=== PATIENT | male | born 1955 | race Caucasian/White ===

== ENCOUNTER 2016-07-06 10:38 | Day surgery (SDC) | payer OTHER ==
[2016-07-06] MEDS ORDERED: NS 500 ML IV ONE (10:45)
[2016-07-06] MEDS ORDERED: fentaNYL 100 MCG/2 ML INJ IVP ONE (10:45)
[2016-07-06] MEDS ORDERED: PROPOFOL 200 MG/20 ML VIAL IVP ONE (10:45)
[2016-07-06] MEDS ORDERED: BENZOCAINE UNIT DOSE SPRAY HURRICAINE MM ONE (10:45)
[2016-07-06] MEDS ORDERED: MIDAZOLAM 2 MG/2 ML VIAL IVP ONE (10:45)
[2016-07-06] MEDS ORDERED: ATROPINE SULFATE 1 MG/10 ML SYR ONE (10:49)
--- NOTE | 2016-07-06 11:06 | CPEKG ---
Heart Rate: 92 RR Interval: 652 QRSD Interval: 86 QT Interval: 360 QTC Interval: 446 QRS [place]: 16 T Wave [place]: 2 EKG Severity - ABNORMAL ECG - EKG Impression: ATRIAL FIBRILLATION, V-RATE 70-111 Electronically Signed By: Charanjit Byers 07-Jul-2016 06:36:02
[2016-07-06] MEDS ORDERED: LIDOCAINE 2% 5 ML SDV ONE ×2 (11:32→11:41)
[2016-07-06 11:41] LABS: ANION GAP 9 mEq/L (8-16); CARBON DIOXIDE 29 mEq/l (22-31); CHLORIDE 104 mEq/L (97-110); CREATININE 1.1 mg/dL (0.7-1.3); GLOMERULAR FILTRATION RATE > 60; GLUCOSE 91 mg/dL (70-100); INR 1.14 (0.83-1.16); MAGNESIUM 2.1 mg/dL (1.6-2.3); POTASSIUM 4.8 mEq/L (3.5-5.2); PROTIME(PATIENT) 14.5 SEC (12.0-15.0); SODIUM 142 mEq/L (134-144)
[2016-07-06] MEDS ORDERED: PROPOFOL 200 MG/20 ML VIAL ONE (11:41)
[2016-07-06 11:42] LABS: APTT 27.5 SEC (23.0-38.0)
--- NOTE | 2016-07-06 12:17 | CPEKG ---
Heart Rate: 64 RR Interval: 938 P-R Interval: 164 QRSD Interval: 86 QT Interval: 412 QTC Interval: 425 P [place]: 47 QRS [place]: 6 T Wave [place]: 2 EKG Severity - BORDERLINE ECG - EKG Impression: SINUS RHYTHM EKG Impression: LEFT ATRIAL ENLARGEMENT Electronically Signed By: Charanjit Byers 07-Jul-2016 06:35:54
--- NOTE | 2016-07-06 13:53 | ECHO ---
[id number] + + [address] : : [facility] [address] : : [phone] + + Adult Echocardiographic Report + -----+ :Name: DELVIN COATES Date: 07/06/2016 11:25 AM : : Hospital Admission Number: [id number] Location : CVC: :: 1955 Gender: Male : :Age: 61 yrs Race: WH,White : :Reason For Study: Eval JON : :History: Pre Cardioversion : + -----+ Left Ventricle The left ventricle is normal in size. There is normal left ventricular wall thickness. The left ventricular ejection fraction is normal. Right Ventricle The right ventricle is normal in size and function. Atria No thrombus is detected in the left atrial appendage. No left atrial mass or thrombus visualized. Injection of contrast documented an interatrial shunt. A patent foramen ovale is present. Mitral Valve There is moderate mitral regurgitation. Tricuspid Valve Normal tricuspid valve. There is mild tricuspid regurgitation. Aortic Valve The aortic valve is trileaflet. There is no aortic stenosis. There is no aortic insufficiency. Pulmonic Valve The pulmonic valve is normal in structure and function. Pericardium/Pleural There is no pericardial effusion. Conclusion A complete two-dimensional transthoracic echocardiogram was performed (2D, M-mode, Doppler and color flow Doppler). The left ventricular ejection fraction is normal. No thrombus is detected in the left atrial appendage. No left atrial mass or thrombus visualized. Injection of contrast documented an interatrial shunt. A patent foramen ovale is present. There is moderate mitral regurgitation. Normal tricuspid valve There is mild tricuspid regurgitation. The aortic valve is trileaflet. There is no pericardial effusion. Final Reading Physician: Aaron Espinoza MD electronically signed on 07/06/2016 01:52 PM Ordering Physician: Aaron Espinoza Performed By: Aaron Espinoza MD
--- NOTE | 2016-07-08 01:17 | CPR ---
[f rep st] NONINVASIVE CARDIAC PROCEDURE REPORT PROCEDURE: Cardioversion. INDICATION: Atrial fibrillation. DESCRIPTION OF PROCEDURE: Written informed consent was obtained. Patient had been on Eliquis; whitten richard, given prior history of stroke, we elected to perform a YANN which showed absence of left atrial or left atrial appendage thrombus. YANN report has been dictated separately. The anesthesiologist administered IV general anesthesia prior to YANN. A single 200 joule biphasic s ynchronized DC shock was administered which converted the patient to sinus rhythm. There were no co mplications. /[id number]/MODL
== END 2016-07-06 13:38 | disposition home or self-care (01) ==
LOC: FCATH 10:38
PROVIDERS: ATTEND Internal Medicine Cardiovascular Disease
PROC: B246ZZ4 Ultrasonography of Right and Left Heart, Transesophageal (ICD-10-PCS; principal; 2016-07-06)
PROC: 5A2204Z Restoration of Cardiac Rhythm, Single (ICD-10-PCS; principal; 2016-07-06)
DX: I48.91 Unspecified atrial fibrillation (principal); K21.9 Gastro-esophageal reflux disease without esophagitis; Z79.01 Long term (current) use of anticoagulants; Z86.73 Personal history of transient ischemic attack (TIA), and cerebral infarction without residual deficits
CPT/HCPCS: J0461; J2704

== ENCOUNTER → 2016-07-29 | Day surgery (SDC) | payer OTHER ==
[~2016-07-29] MED LIST: ATROPINE SULFATE 1 MG/10 ML SYR ONE; BENZOCAINE UNIT DOSE SPRAY HURRICAINE MM ONE; MIDAZOLAM 2 MG/2 ML VIAL IVP ONE; NS 500 ML IV ONE; PROPOFOL 200 MG/20 ML VIAL IVP ONE; fentaNYL 100 MCG/2 ML INJ IVP ONE
--- NOTE | 2016-07-29 11:38 | CPEKG ---
Heart Rate: 79 RR Interval: 759 QRSD Interval: 96 QT Interval: 376 QTC Interval: 432 QRS [place]: 11 T Wave [place]: 6 EKG Severity - ABNORMAL ECG - EKG Impression: ATRIAL FIBRILLATION, V-RATE 63-91 Electronically Signed By: Kenya Fernandez 29-Jul-2016 12:18:08
[2016-07-29 11:56] LABS: INR 1.19 (0.83-1.16); PROTIME(PATIENT) 15.1 SEC (12.0-15.0)
[2016-07-29 11:57] LABS: APTT 28.1 SEC (23.0-38.0)
[2016-07-29 12:03] LABS: ANION GAP 10 mEq/L (8-16); CARBON DIOXIDE 28 mEq/l (22-31); CHLORIDE 102 mEq/L (97-110); CREATININE 1.2 mg/dL (0.7-1.3); GLOMERULAR FILTRATION RATE > 60; GLUCOSE 91 mg/dL (70-100); POTASSIUM 4.6 mEq/L (3.5-5.2); SODIUM 140 mEq/L (134-144)
--- NOTE | 2016-07-29 12:37 | CPEKG ---
Heart Rate: 57 RR Interval: 1053 P-R Interval: 168 QRSD Interval: 92 QT Interval: 416 QTC Interval: 405 P [place]: 37 QRS [place]: 12 T Wave [place]: 5 EKG Severity - NORMAL ECG - EKG Impression: SINUS RHYTHM Electronically Signed By: Kenya Fernandez 29-Jul-2016 15:42:28
--- NOTE | 2016-07-29 22:37 | CPR ---
[f rep st] NONINVASIVE CARDIAC PROCEDURE REPORT CARDIOVERSION REPORT INDICATION: Atrial fibrillation. Anticoagulation with Eliquis. The patient has not missed a single dose since his last transesophage al echocardiogram, and he has been instructed to continue it long-term given his history of stroke. He was started on Rythmol recently. ANESTHESIOLOGIST: Dr. Nain Caballero DESCRIPTION: Appropriate monitoring was established, and consents were signed. A single 200 joule biphasic synchronized DC shock was administered after IV general anesthesia. This converted him to normal sinus rhythm. There were no complications. LONG-TERM PLAN: I will follow up with the patient in 1 month. If he has had recurrence of atrial f ibrillation, discussion to be had at that time regarding increasing dose of Rythmol, trying Tikosyn or sotalol versus considering catheter-based or surgical ablation. /[id number]/MODL
== END | disposition home or self-care (01) ==
LOC: FCATH 11:17
PROVIDERS: ATTEND Internal Medicine Cardiovascular Disease
PROC: 5A2204Z Restoration of Cardiac Rhythm, Single (ICD-10-PCS; principal; 2016-07-29)
DX: I48.1 Persistent atrial fibrillation (principal)
CPT/HCPCS: J0461; J2704

== ENCOUNTER → 2016-10-20 | Outpatient (CLI) | payer OTHER ==
[~2016-10-20] MED LIST changes: -ATROPINE SULFATE 1 MG/10 ML SYR ONE; -BENZOCAINE UNIT DOSE SPRAY HURRICAINE MM ONE; +IOPAMIDOL (ISOVUE 370) 100 ML BTL IV ONE; -MIDAZOLAM 2 MG/2 ML VIAL IVP ONE; -NS 500 ML IV ONE; -PROPOFOL 200 MG/20 ML VIAL IVP ONE; -fentaNYL 100 MCG/2 ML INJ IVP ONE
== END ==
LOC: FIMAGING 11:53
PROVIDERS: ATTEND Internal Medicine Cardiovascular Disease
DX: Z01.810 Encounter for preprocedural cardiovascular examination (principal); I48.91 Unspecified atrial fibrillation; I25.10 Atherosclerotic heart disease of native coronary artery without angina pectoris; K44.9 Diaphragmatic hernia without obstruction or gangrene; K76.89 Other specified diseases of liver
CPT/HCPCS: Q9967

== ENCOUNTER 2016-10-27 07:14 | Observation (INO) | payer OTHER ==
[2016-10-27] MEDS ORDERED: MIDAZOLAM 2 MG/2 ML VIAL IVP ONE (07:18)
[2016-10-27] MEDS ORDERED: NS 1,000 ML IV ONE (07:18)
[2016-10-27] MEDS ORDERED: LIDOCAINE 1% 300 MG/30 ML SDV ONE (07:34)
[2016-10-27] MEDS ORDERED: HEPARIN 10,000 UNIT/10 ML MDV ONE (07:34)
[2016-10-27] MEDS ORDERED: BUPIVACAINE 0.5% 30 ML SDV ONE (07:34)
--- NOTE | 2016-10-27 07:39 | CPEKG ---
Heart Rate: 81 RR Interval: 741 QRSD Interval: 84 QT Interval: 352 QTC Interval: 409 QRS [place]: 26 T Wave [place]: -2 EKG Severity - ABNORMAL ECG - EKG Impression: ATRIAL FIBRILLATION, V-RATE 64-92 EKG Impression: BORDERLINE T ABNORMALITIES, INFERIOR LEADS Electronically Signed By: Jose E Hughes 27-Oct-2016 09:04:16
[2016-10-27 07:54] LABS: % IMMATURE GRANULYOCYTES 0.2 % (0.0-1.1); ABSOLUTE IMMATURE GRANULOCYTES 0.01 10^3/uL (0.00-0.10); ADD DIFF? NO; ADD MORPH? NO; ADD SCAN? NO; ATYPICAL LYMPHOCYTE FLAG 0 (0-99); FRAGMENT RBC FLAG 0 (0-99); HEMATOCRIT 43.9 % (40.0-51.0); HEMOGLOBIN 14.8 g/dL (13.7-17.5); LEFT SHIFT FLG 0 (0-99); LIPEMIA HEMOLYSIS FLAG 80 (0-99); MEAN CELL HEMOGLOBIN 31.2 pg (27.9-34.1); MEAN CELL HEMOGLOBIN CONCENTR. 33.7 g/dL (32.4-36.7); MEAN CELL VOLUME 92.6 fL (81.5-99.8); MEAN PLATELET VOLUME 10.7 fL (8.7-11.7); PLATELET CLUMPS FLAG 0 (0-99); PLATELET COUNT 187 10^3/uL (150-400); RED BLOOD CELL COUNT 4.74 10^6/uL (4.40-6.38); RED CELL DISTRIBUTION WIDTH 13.5 % (11.5-15.2)
[2016-10-27] MEDS ORDERED: HEPARIN/DEXTROSE 25,000 UNIT/500 ML BAG ONE (07:59)
[2016-10-27 08:07] LABS: ANION GAP 10 mEq/L (8-16); CALCIUM 8.4 mg/dL (8.5-10.4); CARBON DIOXIDE 26 mEq/l (22-31); CHLORIDE 102 mEq/L (97-110); CREATININE 1.2 mg/dL (0.7-1.3); GLOMERULAR FILTRATION RATE > 60; GLUCOSE 91 mg/dL (70-100); MAGNESIUM 1.9 mg/dL (1.6-2.3); POTASSIUM 4.3 mEq/L (3.5-5.2); SODIUM 138 mEq/L (134-144)
[2016-10-27 08:19] LABS: INR 0.98 (0.83-1.16); PROTIME(PATIENT) 12.9 SEC (12.0-15.0)
[2016-10-27 08:20] LABS: APTT 31.9 SEC (23.0-38.0)
[2016-10-27] MEDS ORDERED: ROCURONIUM 50 MG/5 ML VIAL ONE (08:32)
[2016-10-27] MEDS ORDERED: PROPOFOL 200 MG/20 ML VIAL ONE ×2 (08:32→08:38)
[2016-10-27] MEDS ORDERED: fentaNYL 100 MCG/2 ML INJ ONE (08:32)
[2016-10-27] MEDS ORDERED: IOPAMIDOL (ISOVUE-300) 100 ML BTL ONE (09:14)
[2016-10-27] MEDS ORDERED: PHENYLEPHRINE 10 MG/ML SDV ONE (10:11)
[2016-10-27] MEDS ORDERED: PROTAMINE SULFATE 50 MG/5 ML VIAL IVP ONE (10:56)
[2016-10-27] MEDS ORDERED: ACETAMINOPHEN 325 MG TAB PO PRN (11:31)
[2016-10-27] MEDS ORDERED: OXYCODONE/APAP 5/325 TAB PO PRN (11:31)
[2016-10-27] MEDS ORDERED: ONDANSETRON 4 MG/2 ML VIAL IVP PRN (11:31)
--- NOTE | 2016-10-27 11:31 | EPPROC ---
Electrophysiology Procedure Note: ELECTROPHYSIOLOGIC STUDY AND BALLOON-CATHETER MEDIATED CRYOABLATION FOR EARLY PERSISTENT ATRIAL FIBRILLATION Procedures performed: 38417-04 EP evaluation with RA/RV/LA pace/record, with arrhythmia induction 95257-57 EP evaluation with RA/RV pace record, insert/reposition catheter, with arrhythmia induction 69373 Atrial fibrillation ablation Intracardiac echocardiogram Fluoroscopy INDICATION: Early persistent atrial fibrillation PROCEDURE: The patient arrived in the Electrophysiology Laboratory in the fasting state. The right groin, left groin and right infraclavicular area were prepped and draped in the usual sterile fashion. Anesthesiologist administered general anesthesia Dr. Gustavo Ortiz . All catheters were placed percutaneously using the Seldinger technique and advanced into position under fluoroscopic guidance. One #7 Yemeni deflectable octapolar electrode catheter was placed in the His-bundle position via the left femoral vein (2mm spacing, IVC electrode for unipolar recordings). This catheter was placed in the coronary sinus after transseptal puncture and later placed in the SVC-R subclavian vein junction to pace the right phrenic nerve during right pulmonary vein ablation. One #8 Yemeni AcuNaV ultrasound catheter was placed in the left femoral vein and advanced into the right atrium. One #4 Yemeni sheath was inserted into the left femoral artery via percutaneous technique and used for continuous arterial blood pressure monitoring and intermittent ACT determination. Programmed stimulation was performed from the right atrium, left atrium (CS) and right ventricle. There was no evidence of AV accessory pathway. Intracardiac echo evaluation of the left atrium and pulmonary veins was performed. Baseline ACT was drawn and heparin bolus was administered and heparin drip was started prior to transseptal puncture. ACT was checked every 15 minutes and maintained in the range of 350-400 seconds. One 14Fr short sheath was placed in the right femoral vein. One 8Fr SL1 sheath was advanced into the right atrium via the 14Fr short sheath. Existing PFO was crossed. Pulmonary vein angiogram was done using SL1 sheath. CT angiography of pulmonary veins was done previously. There were distinct LSPV, LIPV, RSPV and RIPV. The SL1 sheath was exchanged for a Ener1tronic Flexcath sheath using an Amplatz stiff guide wire. A 28 mm Cryoballoon catheter with a 20 mm Achieve catheter was placed via the sheath into the left atrium. Intracardiac ultrasound and PV angiograms were used to assist in placing the mapping catheter at the antrum of the pulmonary veins. All pulmonary veins were isolated successfully using cryoballoon ablation using freeze/thaw/freeze cycles at 2-3-minute intervals, with good [id number] of isolation. Coumadin ridge/Ligament of Rodolfo region was ablated. Pre and post pulmonary vein recordings were measured on the spiral Achieve catheter to ensure complete pulmonary vein isolation. During the right-sided ablation, phrenic nerve pacing was performed to assess the phrenic nerve strength ( manually and with ICE visualization of liver movement during phrenic capture) and the phrenic nerve was intact throughout the right-sided ablation and at the end of the procedure. An esophageal temperature probe (12 electrode, Circa) was placed by the anesthesiologist at the beginning of the procedure. Esophageal temperature was monitored continuously and cryoablation was interrupted if esophageal temperature was <15 C. Esophagus was closest to RIPV. Cryoapplications 8 total cryoablation time 1147 s. ICE imaging post ablation was consistent with pre ablation imaging with no changes noted, moreover there was no left atrial/left ventricular thrombus and no pericardial effusion. The catheters were withdrawn. Protamine was given. The sheaths were removed and manual pressure was used for hemostasis. The patient was recovered from anesthesia. There were no complications. The patient was arousable and moving all four extremities at the end of the procedure. CONCLUSIONS: 1. Early persistent atrial fibrillation. 2. Patent foramen ovale. 3. Successful pulmonary vein isolation procedure (left and right pulmonary vein antrum) using cryoballoon ablation. 4. No apparent complications. Patient Problems: Problems Problem Status Onset Atrial fibrillation and flutter Acute
[2016-10-27 12:01] LABS: ANION GAP 7 mEq/L (8-16); CALCIUM 7.9 mg/dL (8.5-10.4); CARBON DIOXIDE 24 mEq/l (22-31); CHLORIDE 106 mEq/L (97-110); GLOMERULAR FILTRATION RATE > 60; GLUCOSE 95 mg/dL (70-100); MAGNESIUM 1.9 mg/dL (1.6-2.3); POTASSIUM 4.5 mEq/L (3.5-5.2); SODIUM 137 mEq/L (134-144)
--- NOTE | 2016-10-27 12:42 | CPEKG ---
Heart Rate: 75 RR Interval: 800 P-R Interval: 176 QRSD Interval: 94 QT Interval: 396 QTC Interval: 443 P [place]: 70 QRS [place]: 11 T Wave [place]: -4 EKG Severity - BORDERLINE ECG - EKG Impression: SINUS RHYTHM EKG Impression: BORDERLINE T ABNORMALITIES, INFERIOR LEADS EKG Impression: NORMAL SINUS RHYTHM HAS REPLACED ATRIAL FIBRILLATION Electronically Signed By: Francois Melton 27-Oct-2016 13:09:53
[2016-10-27] MEDS: PANTOPRAZOLE SODIUM 40 MG TAB PO SCH (13:08)
[2016-10-27] MEDS: ENOXAPARIN 80 MG/0.8 ML SYR SC SCH (16:19)
[2016-10-27 21:01] VITALS: TEMP 97.9
[2016-10-27] MEDS: METOPROLOL TARTRATE 25 MG TAB PO SCH (21:02)
[2016-10-28] MEDS: ENOXAPARIN 80 MG/0.8 ML SYR SC SCH (04:15)
[2016-10-28 04:34] LABS: % IMMATURE GRANULYOCYTES 0.3 % (0.0-1.1); ABSOLUTE IMMATURE GRANULOCYTES 0.02 10^3/uL (0.00-0.10); ADD DIFF? NO; ADD MORPH? NO; ADD SCAN? NO; ATYPICAL LYMPHOCYTE FLAG 0 (0-99); FRAGMENT RBC FLAG 0 (0-99); HEMOGLOBIN 12.7 g/dL (13.7-17.5); LEFT SHIFT FLG 0 (0-99); LIPEMIA HEMOLYSIS FLAG 90 (0-99); MEAN CELL HEMOGLOBIN 31.4 pg (27.9-34.1); MEAN CELL HEMOGLOBIN CONCENTR. 34.3 g/dL (32.4-36.7); MEAN CELL VOLUME 91.6 fL (81.5-99.8); MEAN PLATELET VOLUME 10.6 fL (8.7-11.7); PLATELET CLUMPS FLAG 10 (0-99); PLATELET COUNT 161 10^3/uL (150-400); RED BLOOD CELL COUNT 4.04 10^6/uL (4.40-6.38); RED CELL DISTRIBUTION WIDTH 13.4 % (11.5-15.2)
[2016-10-28 04:44] LABS: ANION GAP 7 mEq/L (8-16); CALCIUM 8.3 mg/dL (8.5-10.4); CARBON DIOXIDE 24 mEq/l (22-31); CHLORIDE 103 mEq/L (97-110); CREATININE 0.9 mg/dL (0.7-1.3); GLOMERULAR FILTRATION RATE > 60; GLUCOSE 133 mg/dL (70-100); POTASSIUM 4.4 mEq/L (3.5-5.2); SODIUM 134 mEq/L (134-144)
[2016-10-28 04:48] LABS: INR 1.04 (0.83-1.16); PROTIME(PATIENT) 13.5 SEC (12.0-15.0)
[2016-10-28 05:05] LABS: CK-MB INTERPRETATION POSITIVE (NEGATIVE)
--- NOTE | 2016-10-28 08:41 | ECHO ---
[id number] + + [address] : : [place] [address] : : [phone] + + Adult Echocardiographic Report + -----+ :Name: DELVIN COATES Blake Date: 10/28/2016 07:31 AM : : Hospital Admission Number: [id number] Location : 246: :: 1955 Gender: Male Height: 70 in : :Age: 61 yrs Race: WH,White Weight: 175 lb : :Reason For Study: s/p ablation : : BSA: 2.0 meters2 : :History: s/p ablation : + -----+ MMode/2D Measurements \T\ Calculations IVSd: 1.1 cm RVDd: 4.1 cm FS: 33.5 % Ao root diam: LVPWd: 1.0 cm LVIDd: 4.1 cm EDV(Teich): 3.9 cm LVIDs: 2.8 cm 75.7 ml LA dimension: ESV(Teich): 4.2 cm 28.3 ml EF(Teich): 62.7 % LVLd ap4: 8.8 cm SV(MOD-sp4): EDV(MOD-sp4): 67.0 ml 100.0 ml LVLs ap4: 7.7 cm ESV(MOD-sp4): 33.0 ml EF(MOD-sp4): 67.0 % Normal Measurement Values: + + :LVIDd (3.5-5.7cm) IVSd (0.6-1.1cm) LVPWd (0.6-1.1cm) Aortic Root (2.0-3.7cm)Left Atrium (1.5-4.0cm): :LV Vol(d) (76-115ml) LV Vol(s) (29-48ml) Ejec Fraction (50-65%)PV Stefano (0.6- 1.2m/s) TV Stefano (0.4-1.0m/s) : :MV E Stefano (0.8-1.0m/s)MV A Stefano (0.3-1.0m/s)LVOT Stefano (0.7-1.2m/s) Asc Ao Stefano ( 0.9-1.8m/s) : + + Doppler Measurements \T\ Calculations MV E max stefano: Ao V2 max: LV V1 max: TR max stefano: 72.3 cm/sec 80.4 cm/sec 75.3 cm/sec 243.2 cm/sec MV A max stefano: Ao max PG: LV V1 max PG: TR max P.1 cm/sec 2.6 mmHg 2.3 mmHg 23.7 mmHg MV E/A: 3.3 RAP systole: MV dec time: 10.0 mmHg 0.13 sec RVSP(TR): 33.7 mmHg Left Ventricle The left ventricle is normal in size and function. There is normal left ventricular wall thickness. Ejection Fraction = 65%. No regional wall motion abnormalities noted. Right Ventricle The right ventricle is mildly dilated. The right ventricular systolic function is normal. Atria The left atrium is moderately dilated. The Left Atrial Volume is 40 ml/m2. The right atrium is moderately dilated. There was no clot seen in the IVC. A dilated inferior vena cava suggests increased right atrial pressure. Know PFO by YANN. Mitral Valve The mitral valve is normal in structure and function. There is no mitral valve stenosis. There is mild to moderate mitral regurgitation. Tricuspid Valve The tricuspid valve is normal in structure and function. There is no tricuspid stenosis. There is mild tricuspid regurgitation. Aortic Valve The aortic valve is trileaflet. There is no aortic stenosis. Trace aortic regurgitation. Pulmonic Valve The pulmonic valve is normal in structure and function. Mild pulmonic valvular regurgitation. Great Vessels The aortic root is normal size. Pericardium/Pleural There is no pericardial effusion. Conclusion A two-dimensional transthoracic echocardiogram with M-mode and Doppler was performed. The left ventricle is normal in size and function. Ejection Fraction = 65%. The left atrium is moderately dilated. The Left Atrial Volume is 40 ml/m2. The right atrium is moderately dilated. There was no clot seen in the IVC. A dilated inferior vena cava suggests increased right atrial pressure. Know PFO by YANN. There is mild to moderate mitral regurgitation. There is mild tricuspid regurgitation. Trace aortic regurgitation. Mild pulmonic valvular regurgitation. Final Reading Physician: Aaron Espinoza MD electronically signed on 10/28/2016 08:39 AM Ordering Physician: Aaron Espinoza Performed By: Elaine Olson
--- NOTE | 2016-10-28 08:47 | CPEKG ---
Heart Rate: 76 RR Interval: 789 P-R Interval: 176 QRSD Interval: 96 QT Interval: 368 QTC Interval: 414 P [place]: 63 QRS [place]: 15 T Wave [place]: -2 EKG Severity - NORMAL ECG - EKG Impression: SINUS RHYTHM Electronically Signed By: Francois Melton 28-Oct-2016 08:56:35
[2016-10-28] MEDS: METOPROLOL TARTRATE 25 MG TAB PO SCH (08:52)
[2016-10-28] MEDS: PANTOPRAZOLE SODIUM 40 MG TAB PO SCH (08:53)
[2016-10-28 13:00] VITALS: BP 99/65; PULSE 74; RESP 18; O2SAT 92
--- NOTE | 2016-10-28 19:52 | GDS ---
[f rep st] DISCHARGE SUMMARY DISCHARGE DIAGNOSES: 1. Persistent atrial fibrillation. 2. History of cerebrovascular accident. 3. History of patent foramen ovale. BRIEF HISTORY: This is a 61-year-old man, with history of early persistent atrial fibrillation for about the last 4 months. He has had a prior CVA. He had been tried on Rythmol, but had side effects, and opted for an ablation versus trying other oral antiarrhythmics. He does have a history of known PFO. HOSPITAL COURSE: The patient underwent successful pulmonary vein isolation with cryo balloon ablation by Dr. Espinoza. He has done well overnight and throughout the morning, with stable vital signs, and no symptoms or evidence of atrial fibrillation. He has not had any bleeding at his groin sites. He denies any chest pain, shortness of breath, stomach or back discomfort. He was started on Lipitor due to mild atherosclerosis seen on CT done prior to ablation. Rationale and potential side effects of Lipitor were explained. He will be given a lab slip at followup to recheck his cholesterol levels in 6 weeks. His last LDL a year ago was 139. Testing done. EKG: Sinus rhythm, without ST-T wave changes. Echocardiogram: Ejection fraction 65%. Left atrium and right atrium are moderately dilated. There is [id number] MR, mild TR, known PFO. Chest CTA done prior to admission for ablation , demonstrated small hiatal hernia, mild coronary atherosclerosis of the LAD. LABORATORY DATA: WBC 6.58, hemoglobin 12.7, hematocrit 37, platelets 161. PT 13.5, INR 1.04. Sodium 134, potassium 4.4, chloride 103, bicarb 24, BUN 11, creatinine 0.9, and glucose 133. CK 184, CK-MB fraction 24.4, CK-MB percentage 13.3, and troponin is 3.42. PHYSICAL EXAMINATION: VITAL SIGNS: Blood pressure is 101/62, pulse 78, respirations 18, O2 saturation on room air is 97%. GENERAL: He is alert and oriented, sitting up in bed, in no acute distress. CARDIAC: Regular rate and rhythm without murmur, rub, or gallop. LUNGS: Clear to auscultation. ABDOMEN : Soft, nontender. No flank tenderness. Groin sites are without bleeding, drainage, swelling, or ecchymosis. EXTREMITIES: No lower extremity edema or discoloration. Bilateral +1 pedal pulses. Discharge instructions: Activity restrictions reviewed and he was given written directions at discharge. DISCHARGE MEDICATIONS: Please see discharge medication reconciliation. Of note , Eliquis will be restarted tonight. He will continue metoprolol, continue Nexium for 6 weeks, and Lipitor 10 mg was added. FOLLOWUP: He was referred to [facility] for evaluation and treatment of sleep apnea. He has a followup appointment with Dr. Espinoza on 11/11, at 2:45. /[id number]/MODL MTDD
[2016-10-28] MEDS ORDERED: APIXABAN 5 MG TAB PO SCH (21:00)
[2016-10-29] MEDS ORDERED: PANTOPRAZOLE SODIUM 40 MG TAB PO SCH (09:00)
[2016-10-29] MEDS ORDERED: NON-FORMULARY NEW DRUG (Esomeprazole Magnesium [Nexium] 20 MG) PO SCH (09:00)
== END 2016-10-28 13:10 | disposition home or self-care (01) ==
LOC: FCATH 07:14 → INTOOBSV 11:19 → F2N 11:19
PROVIDERS: ADMIT Internal Medicine Cardiovascular Disease; ATTEND Internal Medicine Cardiovascular Disease
PROC: 5A1213Z Performance of Cardiac Pacing, Intermittent (ICD-10-PCS; principal; 2016-10-27)
PROC: 02K83ZZ Map Conduction Mechanism, Percutaneous Approach (ICD-10-PCS; principal; 2016-10-27)
PROC: 025S3ZZ Destruction of Right Pulmonary Vein, Percutaneous Approach (ICD-10-PCS; principal; 2016-10-27)
PROC: 4A023FZ Measurement of Cardiac Rhythm, Percutaneous Approach (ICD-10-PCS; principal; 2016-10-27)
PROC: 02H73MZ Insertion of Cardiac Lead into Left Atrium, Percutaneous Approach (ICD-10-PCS; principal; 2016-10-27)
DX: I48.1 Persistent atrial fibrillation (principal); Z86.73 Personal history of transient ischemic attack (TIA), and cerebral infarction without residual deficits; Z87.74 Personal history of (corrected) congenital malformations of heart and circulatory system
CPT/HCPCS: 93005; 93306; 93613; 93621; 93656; 93662; C1731; C1766; G0378; C1730; C1732; C1733; C1759; C1893; J1644; J1650; J2250; J2370; J2704; J2720; J3010; Q9967

== ENCOUNTER 2016-11-10 10:32 | Day surgery (SDC) | payer OTHER ==
[2016-11-10] MEDS ORDERED: PROPOFOL 200 MG/20 ML VIAL IVP ONE (10:36)
[2016-11-10] MEDS ORDERED: fentaNYL 100 MCG/2 ML INJ IVP ONE (10:36)
[2016-11-10] MEDS ORDERED: MIDAZOLAM 2 MG/2 ML VIAL IVP ONE (10:36)
[2016-11-10] MEDS ORDERED: BENZOCAINE UNIT DOSE SPRAY HURRICAINE MM ONE (10:36)
[2016-11-10] MEDS ORDERED: NS 500 ML IV ONE (10:36)
[2016-11-10 11:14] LABS: INR 1.14 (0.83-1.16); PROTIME(PATIENT) 14.5 SEC (12.0-15.0)
[2016-11-10 11:15] LABS: APTT 30.1 SEC (23.0-38.0)
[2016-11-10] MEDS ORDERED: ATROPINE SULFATE 1 MG/10 ML SYR ONE (11:16)
[2016-11-10 11:34] LABS: ANION GAP 11 mEq/L (8-16); CALCIUM 9.2 mg/dL (8.5-10.4); CARBON DIOXIDE 25 mEq/l (22-31); CHLORIDE 101 mEq/L (97-110); CREATININE 1.2 mg/dL (0.7-1.3); GLOMERULAR FILTRATION RATE > 60; GLUCOSE 96 mg/dL (70-100); MAGNESIUM 2.1 mg/dL (1.6-2.3); POTASSIUM 4.8 mEq/L (3.5-5.2); SODIUM 137 mEq/L (134-144)
--- NOTE | 2016-11-10 13:12 | PDANEPAE ---
ANE History of Present Illness 61 yo for YANN/CV, afib ANE Past Medical History - Cardiovascular History Hx Hypertension: Yes Hx Arrhythmias: Yes Hx Chest Pain: No Hx Coronary Artery / Peripheral Vascular Disease: No Hx CHF / Valvular Disease: No Hx Palpitations: No Cardiovascular History Comment: afib/ aflutter. cardioversions x2 - Pulmonary History Hx COPD: No Hx Asthma/Reactive Airway Disease: No Hx Recent Upper Respiratory Infection: No Hx Oxygen in Use at Home: No Hx Sleep Apnea: No Pulmonary History Comment: anuradha triggers - Neurologic History Hx Cerebrovascular Accident: No Hx Seizures: No Hx Dementia: No - Endocrine History Hx Diabetes: No - Renal History Hx Renal Disorders: No - Liver History Hx Hepatic Disorders: No - Neurological & Psychiatric Hx Hx Neurological and Psychiatric Disorders: No - Cancer History Hx Cancer: No - Congenital Disorder History Hx Congenital Disorders: No - GI History Hx Gastrointestinal Disorders: Yes Gastrointestinal History Comment: reflux. hx of ulcer. hx of egd - Other Health History Other Health History: none - Chronic Pain History Chronic Pain: Yes (bilateral knees) - Surgical History Prior Surgeries: undescended testicle repair at 10 yo. left broken arm repair at 5 yo. tonsillectomy at 19 yo. bilateral knee scopes 8 years ago. cardioversions 03/20/2010, 02/07/2013 ANE Review of Systems - Exercise capacity METS (RN): 4 METS ANE Patient History - Allergies Allergies/Adverse Reactions: No Known Allergies Allergy (Unverified 02/10/09 10:03) - Home Medications Home medications: home medication list seen and reviewed Home Medications: Apixaban [Eliquis] 5 mg PO BID 07/06/16 [Last Taken 11/10/16 05:30] Metoprolol Tartrate [Lopressor 25 mg (*)] 25 mg PO BID 07/06/16 [Last Taken 05:30] Multivitamins [Multivitamin (*)] 1 each PO DAILY 07/06/16 [Last Taken 07/29/16 07:00] Esomeprazole Magnesium [Nexium] 20 mg PO DAILY 10/27/16 [Last Taken 11/10/16 05: 30] Herbals/Supplements -Info Only 1 each PO DAILY 10/27/16 [Last Taken Unknown] [place]-3 Fatty Acids [Fish Oil 1000 mg (*)] 1,000 mg PO DAILY 10/27/16 [Last Taken Unknown] - NPO status NPO Status: no food or drink >8 hours - Smoking Hx Smoking Status: Never smoked - Family Anes Hx Family Hx Anesthesia Complications: none ANE Labs/Vital Signs - Labs Result Diagrams: 11/10/16 10:53 - Vital Signs Height: 5 ft 10.08 in Weight: 79.4 kg ANE Physical Exam - Airway Neck exam: FROM Mallampati Score: Class 2 Mouth exam: normal dental/mouth exam - Pulmonary Pulmonary: no respiratory distress - Cardiovascular Cardiovascular: regular rate and rhythym - ASA Status ASA Status: III ANE Anesthesia Plan Anesthesia Plan: MAC (IVGA)
[2016-11-10] MEDS ORDERED: PROPOFOL 200 MG/20 ML VIAL ONE (13:35)
--- NOTE | 2016-11-10 13:42 | PDHPUP ---
History & Physical Update H&P update statement: This history and physical update is based on an assessment of the patient which was completed after admission or registration (within 24 hours), but prior to the surgery/procedure. H&P update: H&P reviewed & patient examined, no change in patient's condition since H&P completed
--- NOTE | 2016-11-10 13:52 | PDTEE1 ---
YANN Cardioversion Procedure Procedure: Electrical Cardioversion, Transesophageal Echo Indications: Atrial Fibrillation Consent: Signed and in Chart Anticoagulation: Eliquis Procedural Details: Pads were placed in anterior-posterior position. YANN probe was advanced and standard images obtained. There is no evidence of left atrial or left atrial appendage thrombus. Synchronized cardioversion attempt #1: 200J Results: Normal sinus rhythm Conclusions: Successful YANN Cardioversion Patient Problems: Problems Problem Status Onset Atrial fibrillation and flutter Acute
--- NOTE | 2016-11-10 14:44 | POSTANESTH ---
Post Anesthetic Evaluation Cardiovascular Status: Normal, Stable Respiratory Status: Normal, Stable Level of Consciousness/Mental Status: Can Participate in Eval Pain Control: Adequate, Prn Tx Ordered Nausea/Vomiting Control: Adequate, Prn Tx Ordered Complications Possibly Related to Anesthesia: None Noted
--- NOTE | 2016-11-10 14:46 | CPEKG ---
Heart Rate: 59 RR Interval: 1017 P-R Interval: 168 QRSD Interval: 90 QT Interval: 432 QTC Interval: 428 P [place]: 63 QRS [place]: 13 T Wave [place]: 0 EKG Severity - NORMAL ECG - EKG Impression: SINUS RHYTHM Electronically Signed By: Aaron Espinoza 10-Nov-2016 21:20:14
== END 2016-11-10 15:43 | disposition home or self-care (01) ==
LOC: FCATH 10:32
PROVIDERS: ATTEND Internal Medicine Cardiovascular Disease
PROC: 5A2204Z Restoration of Cardiac Rhythm, Single (ICD-10-PCS; principal; 2016-11-10)
PROC: B245ZZ4 Ultrasonography of Left Heart, Transesophageal (ICD-10-PCS; principal; 2016-11-10)
CPT/HCPCS: J0461; J2704